=== PATIENT | male | born 1980 | race Caucasian/White ===

== ENCOUNTER 2022-08-22 14:17 | Emergency (ER) | payer SELFPAY | END 2022-08-22 16:10 | disposition home or self-care (01) | LOC: JD.ED 14:17 | DX: S63.105A Unspecified dislocation of left thumb, initial encounter (principal); X58.XXXA Exposure to other specified factors, initial encounter; Y93.72 Activity, wrestling | CPT/HCPCS: 73130-26-LT; 73130-LT; 99283 ==